=== PATIENT | female | born 1945 | race African-American/Black ===

== ENCOUNTER 2021-09-05 06:16 | Emergency (ER) | payer MEDICARE, OTHER ==
[~2021-09-05] VITALS: Ht 152.4 cm; Wt 47.6 kg
--- NOTE | 2021-09-05 06:18 | NUR ---
Pt BIB ambulance stating that she ran out of her home oxygen. She denies SOB at this time.
--- NOTE | 2021-09-05 06:28 | NUR ---
Dr. Han at bedside for MSE.
[2021-09-05] MEDS ORDERED: ALBUTEROL SULFATE 2.5 MG/ 0.5 ML NEBU NEB ONE (06:45)
--- NOTE | 2021-09-05 06:50 | NUR ---
Pt is agitated and resistant to diagnostic testing. Educated patient on importance of labs and EKG
[2021-09-05] MEDS ORDERED: ALBUTEROL SULFATE 2.5 MG/ 0.5 ML NEBU ONE (07:04)
[2021-09-05 07:06] LABS: HEMATOCRIT 34.2 % (31.2-41.9); MEAN CORPUSCULAR HEMOGLOBIN 32.1 uug (24.7-32.8); MEAN CORPUSCULAR VOLUME 95.4 fL (75.5-95.3); PLATELET COUNT (AUTO) 186 K/uL (179-408)
--- NOTE | 2021-09-05 07:10 | NUR ---
Report given to Elaina ULRICH
--- NOTE | 2021-09-05 07:15 | NUR ---
PT out of ER for Xray.
[2021-09-05 07:22] LABS: CREATININE 0.7 mg/dL (0.6-1.3); POTASSIUM 4.1 mmol/L (3.5-5.1)
--- NOTE | 2021-09-05 07:30 | NUR ---
PT back from Xray, remaines on 02 at 3L via N/C, 02 sat 100%.
[2021-09-05 07:34] LABS: BILIRUBIN,TOTAL 0.3 mg/dL (0.2-1.0); TOTAL PROTEIN, SERUM 6.9 g/dL (6.4-8.2)
--- NOTE | 2021-09-05 07:55 | NUR ---
Pt states feeling better after breathing tx. Urine collected and sent to lab.
[2021-09-05 08:11] LABS: *BILIRUBIN,URIN NEGATIVE (NEGATIVE); *BLOOD, URINE NEGATIVE (NEGATIVE); *CLARITY,URINE CLEAR (CLEAR); *COLOR,URINE YELLOW (YELLOW); *KETONES,URINE NEGATIVE (NEGATIVE); *UROBILINOGEN,URINE 0.2 E.U./dl (NORMAL); LEUKOCYTE ESTERASE ,URINE NEGATIVE (NEGATIVE); NITRITE, URINE NEGATIVE (NEGATIVE); UGLUCOSE NEGATIVE (NEGATIVE)
--- NOTE | 2021-09-05 09:45 | NUR ---
Dr Han spoke to the company for refilling pt's Oxygen canisters. Pt's son Jorge @[phone] notified to bring Pt's empty canister. ETA 1 hour.
--- NOTE | 2021-09-05 10:41 | NUR ---
Patient is resting comfortably in bed with eyes closed, NAD noted.
--- NOTE | 2021-09-05 11:50 | NUR ---
Pt is resting in bed, pt's son brought empty Oxygen tanks and left them w/ pt.
--- NOTE | 2021-09-05 12:33 | NUR ---
Lunch tray provided, ate 100%. No c/o pain.
--- NOTE | 2021-09-05 17:10 | NUR ---
[employer] rep provided pt w/ full oxygen tank. Pt's son Hugo, took the tanks to his car.
--- NOTE | 2021-09-05 17:37 | NUR ---
Patient discharged to home in stable condition. Written and verbal after care instructions given. Patient verbalizes understanding of instructions. Stressed follow up or return to ER for worsening s/s. assissted pt to the son's auto via wheelchair.
[2021-09-05 17:42] VITALS: BP 124/77
[2021-09-06 00:26] LABS: ABG BASE EXCESS 7.2 mmol/L; ABG HCO3 33.8 mmol/L; ABG PCO2 58.1 mmHg (35.0-45.0); ABG PH 7.383 (7.350-7.450); ABG PO2 77.7 mmHg (75.0-100.0); ABG SITE RIGHT RADIAL; COHb 0.5 % (0.5-1.5); MetHb 0.1 % (0.0-1.5); O2Hb 94.4 % (94.0-97.0); VENT MODE Nasal Cannula
== END 2021-09-05 17:44 | disposition home or self-care (01) ==
LOC: ER 06:55
DX: R06.02 Shortness of breath (principal); J84.10 Pulmonary fibrosis, unspecified; Z99.81 Dependence on supplemental oxygen; J45.909 Unspecified asthma, uncomplicated; R00.0 Tachycardia, unspecified
CPT/HCPCS: 36415; 36600; 71046; 84484; 85025; 93005; A4663